=== PATIENT | male | born 1945 | race Caucasian/White ===

== ENCOUNTER 2019-08-11 17:16 | Emergency (ER) | payer MEDICARE ==
[~2019-08-11] VITALS: Ht 172.7 cm; Wt 82.6 kg
[2019-08-11 17:24] VITALS: BP_SYST 118
--- NOTE | 2019-08-11 17:24 | NUR ---
Placed in room 1 . Placed on monitor and storage bin tender, blood pressure machine and pulse oximeter. To gown for exam. Side rails up.
--- NOTE | 2019-08-11 17:25 | NUR ---
RT at the bedside. BiPAP placed. ABg's being drawn.
--- NOTE | 2019-08-11 17:28 | NUR ---
URVASHI Lancaster at bedside examining patient.
--- NOTE | 2019-08-11 17:35 | NUR ---
[facility] Pt was placed on BiPAP before being transferred. Current O2 sat is 97% on 40% FiO2. Pt is AAO x 1, RR 32, breathing is labored. Use of accessory muscle noted. engine monitor placed. Will continue to closely monitor.
--- NOTE | 2019-08-11 17:40 | NUR ---
# 18 gauge angiocath placed to LFA. Use of asceptic technique. Opsite placed over site. Blood return noted. Blood for lab drawn from site. Flushed with 10 cc of normal saline. No evidence of infiltration noted. Patient tolerated well.
[2019-08-11 17:49] LABS: BASOPHILS # (AUTO) 0.1 K/uL (0.0-0.2); BASOPHILS % (AUTO) 0.9 % (0.0-2.0); EOSINOPHILS # (AUTO) 0.1 K/uL (0.0-0.4); EOSINOPHILS % (AUTO) 0.5 % (0.0-4.0); HEMATOCRIT 26.4 % (36-54); HEMOGLOBIN 8.2 g/dL (14.0-18.0); LYMPHOCYTES # (AUTO) 0.2 K/uL (1.0-5.5); LYMPHOCYTES % (AUTO) 1.9 % (20.5-51.5); MEAN CORPUSCULAR HEMOGLOBIN 24 pg (27-31); MEAN CORPUSCULAR HGB CONC 31 % (32-36); MEAN CORPUSCULAR VOLUME 76 fL (79.0-98.0); MONOCYTES # (AUTO) 0.8 K/uL (0.0-1.0); MONOCYTES % (AUTO) 6.6 % (1.7-9.3); NEUTROPHILS # (AUTO) 11.6 K/uL (1.8-7.7); NEUTROPHILS % (AUTO) 90.1 % (40.0-70.0); PLATELET COUNT (AUTO) 302 K/uL (130-430); RED BLOOD CELL COUNT(AUTO) 3.46 MIL/uL (4.2-6.2); WHITE BLOOD COUNT (AUTO) 12.8 K/uL (4.8-10.8)
--- NOTE | 2019-08-11 17:50 | NUR ---
# 16 FR coude Butler catheter with use of sterile technique. Immediate return of 50cc of clear, yelllow urine noted. Bedside drainage bag placed below level of bladder. Urine sample collected and sent to lab. Pt tolerated procedure
--- NOTE | 2019-08-11 18:02 | NUR ---
Current O2 sat is 97% on FiO2 Bipap. RR 27.
[2019-08-11 18:03] LABS: CALCIUM 9.8 mg/dL (8.4-11.0); CHLORIDE 100 mmol/L (98-107); CREATININE 0.66 mg/dL (0.55-1.30); GLUCOSE 169 mg/dL (70-99); POTASSIUM 4.8 mmol/L (3.5-5.1); SODIUM SERUM 133 mmol/L (136-145); UREA NITROGEN, BLOOD 22 mg/dL (8-21)
[2019-08-11 18:05] LABS: ANION GAP < 3 (5-15)
[2019-08-11 18:06] LABS: COLOR,URINE YELLOW (YELLOW)
[2019-08-11 18:07] LABS: CLARITY/URINE SLIGHTLY HAZY (CLEAR)
[2019-08-11 18:08] LABS: BILIRUBIN,URINE NEGATIVE (NEGATIVE); BLOOD, URINE TRACE (NEGATIVE); GLUCOSE,URINE NEGATIVE (NEGATIVE); KETONES,URINE NEGATIVE (NEGATIVE); LEUKOCYTE ESTERASE ,URINE NEGATIVE (NEGATIVE); NITRITE, URINE NEGATIVE (NEGATIVE); PROTEIN URINE NEGATIVE (NEGATIVE); UROBILINOGEN,URINE 0.2 (0.2-1.0)
[2019-08-11] MEDS ORDERED: DOCU-144 PO (18:08)
[2019-08-11 18:13] LABS: BACTERIA,URINE RARE /HPF (None Seen); RBC,URINE 0-3 /HPF (0-3)
[2019-08-11 18:14] LABS: MUCUS,URINE 1+ /LPF (None Seen)
[2019-08-11] MEDS ORDERED: VANCOMYCIN HCL 1,000 MG in NS 250 ML IV ONE (18:15)
[2019-08-11] MEDS ORDERED: FUROSEMIDE 40 MG/4 ML VIAL IVP ONE (18:15)
[2019-08-11] MEDS ORDERED: PIPERACILLIN/TAZO 3.375 GM in NS 50 ML IV ONE (18:15)
[2019-08-11 18:20] LABS: ALANINE AMINOTRANSFERASE 15 U/L (12-78); ALBUMIN 1.9 g/dL (3.4-4.8); ASPARTATE AMINOTRANSFERASE 10 U/L (10-37); TOTAL BILIRUBIN 0.3 mg/dL (0.0-1.0)
--- NOTE | 2019-08-11 18:29 | NUR ---
Currently infusing Zosyn and Vanco IVP per MD order. No fluids needed per MD. Pt is afebrile, WBC is 12.8.
[2019-08-11] MEDS ORDERED: PIPERACILLIN/TAZOBACTAM 3.375 GM/VIAL (ZOSYN) IV ONE (18:35)
[2019-08-11] MEDS ORDERED: VANCOMYCIN HCL 1000 MG/VIAL IV ONE (18:35)
[2019-08-11] MEDS ORDERED: FINA5TAB3 PO (18:55)
[2019-08-11] MEDS ORDERED: NA P133E41 RC (18:55)
[2019-08-11] MEDS ORDERED: TAMS-11 PO (18:55)
[2019-08-11] MEDS ORDERED: FOLI-43 PO (18:55)
[2019-08-11] MEDS ORDERED: DOXY100C2 PO (18:55)
[2019-08-11] MEDS ORDERED: AMIO400T5 PO (18:55)
[2019-08-11] MEDS ORDERED: benzotropine (18:55)
[2019-08-11] MEDS ORDERED: MAGN400T10 PO (18:55)
[2019-08-11] MEDS ORDERED: LASI20 IVP (18:55)
[2019-08-11] MEDS ORDERED: NEUTPHOSP PO (18:55)
[2019-08-11] MEDS ORDERED: ROSU10TA2 PO (18:55)
[2019-08-11] MEDS ORDERED: LACT1CAP61 PO (18:55)
[2019-08-11] MEDS ORDERED: CYAN100010 PO (18:55)
--- NOTE | 2019-08-11 19:05 | NUR ---
Received report from [facility] Holguin. I will continue care.
--- NOTE | 2019-08-11 19:10 | NUR ---
care endorsed to Heidi CALDERON. Pt is pending transfer to [facility]
--- NOTE | 2019-08-11 19:15 | NUR ---
Spoke with pt spouse at bedside about transfer to [facility]. Pt and pt spouse accepted and signed transfer paper.
--- NOTE | 2019-08-11 20:39 | NUR ---
Patient resting quietly. No acute distress noted. Vital signs within normal range.
--- NOTE | 2019-08-11 22:20 | NUR ---
Patient to be transferred to [facility]. Is being transferred due to higher level of care. Receiving facility has accepting physician and available space. ER physician Dr. Feliz has signed transfer form. Patient or responsible alliance party has agreed to transfer and signed form. Patient belongings inventoried and will be sent with patient. Copy of nursing notes, lab reports, EKG, Physicians Orders and X-rays to be sent with patient. Report called to [facility] Lewis at receiving facility. Receiving physician is Dr. Weiner. [facility] service has been called for transfer. VSS.
[2019-08-11 22:21] VITALS: BP_SYST 130
== END 2019-08-11 22:21 | disposition short-term general hospital (02) ==
LOC: SED 17:16
DX: R06.03 Acute respiratory distress (principal); J18.9 Pneumonia, unspecified organism; D64.9 Anemia, unspecified; R79.89 Other specified abnormal findings of blood chemistry; I13.0 Hypertensive heart and chronic kidney disease with heart failure and stage 1 through stage 4 chronic kidney disease, or unspecified chronic kidney disease; I50.9 Heart failure, unspecified; N18.3 Chronic kidney disease, stage 3 (moderate); I48.91 Unspecified atrial fibrillation; Z88.5 Allergy status to narcotic agent; Z88.8 Allergy status to other drugs, medicaments and biological substances; Z79.899 Other long term (current) drug therapy
CPT/HCPCS: 36415; 36600; 71045; 80053; 81000; 82803; 83605; 83880; 84484; 85025; 86710; 86886; 86900; 86901; 87040; 87086; 93005; 96365; 96366; 96368; 96375; 99285; J1940; J2543; J3370